=== PATIENT | male | born 1990 | race Caucasian/White ===

== ENCOUNTER → 2023-09-22 | Day surgery (SDC) | payer BC ==
[~2023-09-22] MED LIST: FAMOTIDINE20 MG PO; LACTATED RINGER'S 1,000 ML ONE; LIDOCAINE HCL 2% LOCAL INJ 5 ML SDV VIAL INJ ONE; LOSARTAN POTASS25 MG PO; OMEPRAZOLE40 MG PO; VITAMIN C1000 MG PO
[2023-09-22 13:39] VITALS: BP 129/82; PULSE 83; RESP 16; TEMP 97.6; O2SAT 98
== END | disposition home or self-care (01) ==
LOC: OR 12:37
PROVIDERS: ATTEND Internal Medicine Gastroenterology
DX: R11.0 Nausea (principal); R12 Heartburn; K21.9 Gastro-esophageal reflux disease without esophagitis; R14.0 Abdominal distension (gaseous); Z53.29 Procedure and treatment not carried out because of patient's decision for other reasons
CPT/HCPCS: 93005; J2001; J7121